=== PATIENT | female | born 1985 | race Two or more races ===

== ENCOUNTER 2022-03-08 20:56 | Emergency (ER) | payer MEDICAID ==
[~2022-03-08] VITALS: Ht 154.9 cm; Wt 68.3 kg
[2022-03-08 21:52] VITALS: BP 155/82
[2022-03-08] MEDS ORDERED: BO1 TP (23:43)
[2022-03-09] MEDS ORDERED: TETANUS, DIPHTHERIA, PERTUSSIS VAC/PF 0.5ML (>10YR OLD) IM ONE ×2 (01:45)
== END 2022-03-09 02:20 | disposition home or self-care (01) ==
LOC: ER 21:07
DX: T16.2XXA Foreign body in left ear, initial encounter (principal); M79.5 Residual foreign body in soft tissue; X58.XXXA Exposure to other specified factors, initial encounter; S81.851A Open bite, right lower leg, initial encounter; R03.0 Elevated blood-pressure reading, without diagnosis of hypertension; Y93.89 Activity, other specified; W54.0XXA Bitten by dog, initial encounter; Y92.017 Garden or yard in single-family (private) house as the place of occurrence of the external cause
CPT/HCPCS: 69200; 90471; 90715; 99284